=== PATIENT | male | born 1975 | race Caucasian/White ===

== ENCOUNTER 2016-10-20 14:59 | Emergency (ER) | payer OTHER ==
[~2016-10-20] VITALS: Ht 180.3 cm; Wt 72.6 kg
[2016-10-20 15:05] VITALS: BP 164/84
[2016-10-20 15:45] LABS: BASOPHILS % (AUTO) 0.9 % (0.0-2.0); DIFF TOTAL % 100 %; EOSINOPHILS % (AUTO) 0.9 % (0.0-6.0); HEMATOCRIT 45 % (39-51); HEMOGLOBIN 14.9 g/dL (13.5-17.5); LYMPHOCYTES % (AUTO) 21.8 % (20.0-44.0); MEAN CORPUSCULAR HEMOGLOBIN 31 PG (26.0-33.0); MEAN CORPUSCULAR HGB CONC 33 g/dl (31.0-36.0); MEAN CORPUSCULAR VOLUME 92 fL (80-96); MONOCYTES # (AUTO) 0.8 /CMM (0.1-1.30); MONOCYTES % (AUTO) 16.5 % (2.0-12.0); NEUTROPHILS % (AUTO) 59.9 % (43.0-81.0); PLATELET COUNT (AUTO) 226 /CMM (150-450); RED BLOOD CELL COUNT(AUTO) 4.88 MIL/uL (4.5-6.0); WHITE BLOOD COUNT (AUTO) 4.8 K/uL (4.3-11.0)
[2016-10-20 15:58] LABS: CALCIUM, SERUM 9.4 mg/dL (8.5-10.1); CREATININE 0.9 mg/dL (0.6-1.3); POTASSIUM 3.2 mmol/L (3.5-5.1)
[2016-10-20] MEDS ORDERED: LORAZEPAM 1 MG TABLET PO ONE ×2 (16:00→19:00)
[2016-10-20] MEDS ORDERED: IV NS 0.9% 1,000 ML BAG IV ONE (16:00)
[2016-10-20] MEDS ORDERED: MORPHINE SULFATE INJ 2 MG/ML DISP.SYRIN IM ONE (16:00)
[2016-10-20 16:03] LABS: ALBUMIN 4.1 g/dL (3.4-5.0); BILIRUBIN,DIRECT 0.2 mg/dL (0.0-0.2); BILIRUBIN,TOTAL 0.6 mg/dL (0.2-1.0); INDIRECT BILIRUBIN 0.4 mg/dL (0.0-1.1); SALICYLATE 2.9 mg/dL (2.8-20.0); TOTAL PROTEIN, SERUM 7.3 g/dL (6.4-8.2)
[2016-10-20] MEDS ORDERED: IV NS 0.9% 1,000 ML ONE (16:09)
[2016-10-20] MEDS ORDERED: LORAZEPAM 1 MG TABLET ONE ×2 (16:09→20:19)
[2016-10-20] MEDS ORDERED: LORAZEPAM INJ 2 MG/ML VIAL IV ONE (17:30)
[2016-10-20] MEDS ORDERED: CHLORDIAZEPOXIDE HCL 25 MG CAPSULE PO ONE (18:00)
[2016-10-20] MEDS ORDERED: CHLORDIAZEPOXIDE HCL 25 MG CAPSULE ONE (18:10)
== END 2016-10-20 16:30 | disposition home or self-care (01) ==
LOC: ER 15:03
DX: F10.239 Alcohol dependence with withdrawal, unspecified (principal)
CPT/HCPCS: 36415; 80048; 80076; 85025; 99284; A4606; G0480; G0481; G0482; J7030; Z7610; G6039-TC

== ENCOUNTER 2016-12-16 21:37 | Emergency (ER) | payer OTHER ==
[~2016-12-16] VITALS: Ht 180.3 cm; Wt 74.8 kg
[2016-12-16 21:57] VITALS: BP 117/72
== END 2016-12-16 22:42 | disposition home or self-care (01) ==
LOC: ER 21:46
DX: H66.92 Otitis media, unspecified, left ear (principal)
CPT/HCPCS: A4606; Z7610

== ENCOUNTER 2016-12-27 05:20 | Emergency (ER) | payer OTHER ==
[~2016-12-27] VITALS: Ht 180.3 cm; Wt 74.8 kg
[2016-12-27 05:26] VITALS: BP 127/79
[2016-12-27] MEDS ORDERED: NEOMYCIN ONE (05:34)
[2016-12-27] MEDS ORDERED: POLYMYXIN B ONE (05:34)
[2016-12-27] MEDS ORDERED: HYDROCORTISONE ONE (05:34)
[2016-12-27] MEDS ORDERED: NEO/POLY B SULF/HC OTIC SOLN 10 ML BOTTLE LEFT EAR ONE (06:00)
== END 2016-12-27 05:56 | disposition home or self-care (01) ==
LOC: ER 05:22
DX: H60.92 Unspecified otitis externa, left ear (principal); J06.9 Acute upper respiratory infection, unspecified
CPT/HCPCS: 99283; A4606; Z7610